=== PATIENT | female | born 1970 | race Two or more races ===

== ENCOUNTER 2021-04-02 08:00 | Inpatient (IN) | payer OTHER ==
[~2021-04-02] VITALS: Ht 154.9 cm; Wt 76.2 kg
[2021-04-02] MEDS ORDERED: NORVASC10 MG PO (16:52)
[2021-04-02] MEDS ORDERED: ALTACE10 MG PO (16:52)
[2021-04-05] MEDS ORDERED: RALOXIFENE HCL60 MG (11:37)
[2021-04-05] MEDS ORDERED: BACLOFEN10 MG (11:37)
== END 2021-04-08 12:28 | disposition home or self-care (01) | DRG 743 ==
LOC: SURH 08:00 → O/R 04-05 07:54 → OB/GYN 04-05 07:54
PROVIDERS: ADMIT Specialist; ATTEND Specialist
PROC: 0UT60ZZ Resection of Left Fallopian Tube, Open Approach (ICD-10-PCS; 2021-04-05)
PROC: 0DBW0ZZ Excision of Peritoneum, Open Approach (ICD-10-PCS; 2021-04-05)
PROC: 0DBJ0ZZ Excision of Appendix, Open Approach (ICD-10-PCS; 2021-04-05)
PROC: 0DNW0ZZ Release Peritoneum, Open Approach (ICD-10-PCS; 2021-04-05)
PROC: 0UT10ZZ Resection of Left Ovary, Open Approach (ICD-10-PCS; principal; 2021-04-05 08:00)
DX: N83.12 Corpus luteum cyst of left ovary (principal); N83.11 Corpus luteum cyst of right ovary; K66.8 Other specified disorders of peritoneum; K63.89 Other specified diseases of intestine; N99.4 Postprocedural pelvic peritoneal adhesions; N73.6 Female pelvic peritoneal adhesions (postinfective); N83.8 Other noninflammatory disorders of ovary, fallopian tube and broad ligament; I10 Essential (primary) hypertension